=== PATIENT | male | born 1965 | race Caucasian/White ===

== ENCOUNTER 2018-02-03 18:12 | Inpatient (IN) | payer OTHER ==
[2018-02-03] MEDS ORDERED: NACL 0.9% 3 ML SYG IV (19:00)
[2018-02-03] MEDS ORDERED: HYDROCODONE/APAP (5/325) TAB PO (19:00)
[2018-02-03] MEDS ORDERED: MAGNESIUM HYDROXIDE 30ML CUP PO (19:00)
[2018-02-03] MEDS ORDERED: ACETAMINOPHEN 325 MG TAB PO (19:00)
[2018-02-03] MEDS ORDERED: METOCLOPRAMIDE 10 MG INJ IV (20:00)
[2018-02-03] MEDS ORDERED: LORAZEPAM 2 MG INJ IV (20:00)
[2018-02-03] MEDS ORDERED: PROMETHAZINE (1.25 MG/ML) 5 ML CUP PO (20:30)
[2018-02-03] MEDS ORDERED: PROMETHAZINE 25 MG TAB PO (20:30)
[2018-02-03] MEDS: morphine 2 MG INJ IV (20:59)
[2018-02-03] MEDS: CHLORDIAZEPOXIDE 25 MG CAP PO (21:00)
[2018-02-03] MEDS: DEXTROSE 5%-0.9% NACL 1,000 ML IV (21:00)
[2018-02-03] MEDS: LORAZEPAM 1 MG TAB PO (22:01)
[2018-02-03] MEDS: PANTOPRAZOLE 40 MG INJ IV (22:02)
[2018-02-04] MEDS: ONDANSETRON 4 MG INJ IV (03:11)
[2018-02-04] MEDS: morphine 2 MG INJ IV ×4 (03:19→18:43)
[2018-02-04 06:33] LABS: ADD MAN DIFF? NO
[2018-02-04 06:41] LABS: ABNORMAL IP MESSAGE 1; EOSINOPHILS # 0.1 10^3/ul (0.0-0.5); EOSINOPHILS % 1.6 % (0.0-7.0); HEMATOCRIT 23.8 % (42.0-52.0); HEMOGLOBIN 7.8 g/dl (14.0-18.0); LYMPHOCYTES # 1.1 10^3/ul (0.8-2.9); LYMPHOCYTES % 34.9 % (15.0-51.0); MEAN CORPUSCULAR HGB CONC 32.8 g/dl (32.0-37.0); MEAN CORPUSCULAR VOLUME 85.3 fl (82.0-101.0); MEAN PLATELET VOLUME 11.5 fl (7.4-10.4); MONOCYTE # 0.2 10^3/ul (0.3-0.9); MONOCYTES % 7.7 % (0.0-11.0); NEUTROPHIL # 1.7 10^3/ul (1.6-7.5); NEUTROPHILS % 53.8 % (39.0-77.0); PLATELET COUNT 76 10^3/UL (140-415); POSITIVE DIFF @See below; RED BLOOD COUNT 2.79 10^6/ul (4.70-6.10); RED CELL DISTRIBUTION WIDTH 15.9 % (11.5-14.5)
[2018-02-04 06:41] LABS: WHITE BLOOD COUNT 3.1 10^3/ul (4.8-10.8)
[2018-02-04 07:39] LABS: ANION GAP 12 (8-16)
[2018-02-04 07:41] LABS: ALANINE AMINOTRANSFERASE 35 IU/L (13-69); ALBUMIN 3.2 g/dl (3.3-4.9); ALBUMIN/GLOBULIN RATIO 1.23; ALKALINE PHOSPHATASE 60 IU/L (42-121); ASPARTATE AMINO TRANSFERASE 35 IU/L (15-46); BILIRUBIN,INDIRECT 0.4 mg/dl (0-1.1); BILIRUBIN,TOTAL 0.4 mg/dl (0.2-1.3); BLOOD UREA NITROGEN 5 mg/dl (7-20); CALCIUM 8.3 mg/dl (8.4-10.2); CARBON DIOXIDE 27 mmol/L (21-31); CHLORIDE 104 mmol/L (97-110); CREATININE 0.66 mg/dl (0.61-1.24); GLUCOSE 92 mg/dl (70-220); MAGNESIUM 1.4 mg/dl (1.7-2.5); PHOSPHORUS 4.5 mg/dl (2.5-4.9); POTASSIUM 3.4 mmol/L (3.5-5.1); SODIUM 140 mmol/L (135-144); TOTAL PROTEIN 5.8 g/dl (6.1-8.1)
[2018-02-04] MEDS: CHLORDIAZEPOXIDE 25 MG CAP PO ×2 (09:05→20:52)
[2018-02-04] MEDS: MULTIVITAMINS/MINERALS TAB PO (09:05)
[2018-02-04] MEDS: FOLIC ACID 1 MG TAB PO (09:05)
[2018-02-04] MEDS: PANTOPRAZOLE 40 MG INJ IV ×2 (09:05→20:52)
[2018-02-04] MEDS: THIAMINE 100 MG TAB PO (09:05)
[2018-02-04] MEDS: BUPROPION (XL) 150 MG TAB PO (09:06)
[2018-02-04] MEDS: LISINOPRIL 10 MG TAB PO (09:07)
[2018-02-04] MEDS: DEXTROSE 5%-0.9% NACL 1,000 ML IV (11:16)
[2018-02-04] MEDS: POTASSIUM CHLORIDE (SR) 20 MEQ TAB PO (16:38)
[2018-02-04] MEDS: MAGNESIUM SULFATE 1 GM/D5W 100 ML IVPB ×3 (17:37→20:52)
[2018-02-04] MEDS: morphine LIQ (10 MG/5 ML) CUP PO (23:29)
[2018-02-05] MEDS: DEXTROSE 5%-0.9% NACL 1,000 ML IV ×2 (00:36→04:47)
[2018-02-05] MEDS: morphine LIQ (10 MG/5 ML) CUP PO ×2 (04:46→11:43)
[2018-02-05 06:13] LABS: ADD MAN DIFF? NO
[2018-02-05 06:32] LABS: BASOPHILS % 0.5 % (0.0-2.0); EOSINOPHILS # 0.1 10^3/ul (0.0-0.5); EOSINOPHILS % 1.6 % (0.0-7.0); HEMATOCRIT 21.9 % (42.0-52.0); LYMPHOCYTES # 1.2 10^3/ul (0.8-2.9); LYMPHOCYTES % 31.7 % (15.0-51.0); MEAN CORPUSCULAR HEMOGLOBIN 27.6 pg (29.0-33.0); MEAN CORPUSCULAR VOLUME 86.2 fl (82.0-101.0); MONOCYTE # 0.4 10^3/ul (0.3-0.9); MONOCYTES % 10.7 % (0.0-11.0); NEUTROPHILS % 54.4 % (39.0-77.0); PLATELET COUNT 103 10^3/UL (140-415); RED BLOOD COUNT 2.54 10^6/ul (4.70-6.10); RED CELL DISTRIBUTION WIDTH 17.3 % (11.5-14.5)
[2018-02-05 06:32] LABS: WHITE BLOOD COUNT 3.7 10^3/ul (4.8-10.8)
[2018-02-05 06:43] LABS: ANION GAP 10 (8-16); BLOOD UREA NITROGEN 10 mg/dl (7-20); CALCIUM 7.8 mg/dl (8.4-10.2); CARBON DIOXIDE 28 mmol/L (21-31); CHLORIDE 104 mmol/L (97-110); CREATININE 0.72 mg/dl (0.61-1.24); GLUCOSE 108 mg/dl (70-220); POTASSIUM 4.2 mmol/L (3.5-5.1); SODIUM 138 mmol/L (135-144)
[2018-02-05] MEDS: MULTIVITAMINS/MINERALS TAB PO (08:50)
[2018-02-05] MEDS: PANTOPRAZOLE 40 MG INJ IV ×2 (08:50→21:38)
[2018-02-05] MEDS: CHLORDIAZEPOXIDE 25 MG CAP PO ×2 (08:50→21:38)
[2018-02-05] MEDS: LORAZEPAM 1 MG TAB PO (08:50)
[2018-02-05] MEDS: BUPROPION (XL) 150 MG TAB PO (08:51)
[2018-02-05] MEDS: LISINOPRIL 10 MG TAB PO (08:52)
[2018-02-05] MEDS: THIAMINE 100 MG TAB PO (08:56)
[2018-02-05] MEDS: FOLIC ACID 1 MG TAB PO (08:56)
[2018-02-05 13:10] LABS: IMMEDIATE SPIN CROSSMATCH 1 1
[2018-02-06 05:51] LABS: ADD MAN DIFF? NO
[2018-02-06 05:58] LABS: BASOPHILS % 0.4 % (0.0-2.0); EOSINOPHILS # 0.1 10^3/ul (0.0-0.5); EOSINOPHILS % 1.8 % (0.0-7.0); HEMATOCRIT 26.4 % (42.0-52.0); HEMOGLOBIN 8.5 g/dl (14.0-18.0); LYMPHOCYTES # 1.2 10^3/ul (0.8-2.9); LYMPHOCYTES % 27.3 % (15.0-51.0); MEAN CORPUSCULAR HEMOGLOBIN 28.1 pg (29.0-33.0); MEAN CORPUSCULAR HGB CONC 32.2 g/dl (32.0-37.0); MEAN CORPUSCULAR VOLUME 87.1 fl (82.0-101.0); MEAN PLATELET VOLUME 10.7 fl (7.4-10.4); MONOCYTE # 0.7 10^3/ul (0.3-0.9); MONOCYTES % 15.1 % (0.0-11.0); NEUTROPHIL # 2.4 10^3/ul (1.6-7.5); NEUTROPHILS % 54.1 % (39.0-77.0); PLATELET COUNT 116 10^3/UL (140-415); RED BLOOD COUNT 3.03 10^6/ul (4.70-6.10); RED CELL DISTRIBUTION WIDTH 17.1 % (11.5-14.5)
[2018-02-06 05:58] LABS: WHITE BLOOD COUNT 4.5 10^3/ul (4.8-10.8)
[2018-02-06 06:33] LABS: PHOSPHORUS 3.5 mg/dl (2.5-4.9)
[2018-02-06 06:36] LABS: ANION GAP 13 (8-16); BLOOD UREA NITROGEN 10 mg/dl (7-20); CALCIUM 8.5 mg/dl (8.4-10.2); CARBON DIOXIDE 28 mmol/L (21-31); CHLORIDE 106 mmol/L (97-110); CREATININE 0.76 mg/dl (0.61-1.24); GLUCOSE 95 mg/dl (70-220); POTASSIUM 4.8 mmol/L (3.5-5.1); SODIUM 142 mmol/L (135-144)
[2018-02-06] MEDS: LISINOPRIL 10 MG TAB PO (08:12)
[2018-02-06] MEDS: FOLIC ACID 1 MG TAB PO (08:12)
[2018-02-06] MEDS: CHLORDIAZEPOXIDE 25 MG CAP PO (08:12)
[2018-02-06] MEDS: MULTIVITAMINS/MINERALS TAB PO (08:12)
[2018-02-06] MEDS: THIAMINE 100 MG TAB PO (08:12)
[2018-02-06] MEDS: BUPROPION (XL) 150 MG TAB PO (08:12)
[2018-02-06] MEDS: PANTOPRAZOLE 40 MG INJ IV (08:12)
== END 2018-02-06 12:50 | disposition home or self-care (01) | DRG 896 ==
LOC: PP2 18:12
DX: F10.239 Alcohol dependence with withdrawal, unspecified (principal); K22.11 Ulcer of esophagus with bleeding; K29.71 Gastritis, unspecified, with bleeding; K92.0 Hematemesis; D61.818 Other pancytopenia; I10 Essential (primary) hypertension; E78.5 Hyperlipidemia, unspecified; F32.9 Major depressive disorder, single episode, unspecified; E87.6 Hypokalemia; E83.42 Hypomagnesemia; Z85.828 Personal history of other malignant neoplasm of skin; F17.210 Nicotine dependence, cigarettes, uncomplicated
CPT/HCPCS: 36430; 80048; 80053; 83735; 84100; 85025; 86850; 86900; 86901; 86920; 87081

== ENCOUNTER 2018-09-16 01:21 | Inpatient (IN) | payer OTHER ==
[2018-09-16] MEDS: LORAZEPAM 2 MG INJ IV ×3 (04:56→17:57)
[2018-09-16] MEDS: PANTOPRAZOLE (EC) 40 MG TAB PO (05:38)
[2018-09-16 06:30] LABS: ADD MAN DIFF? NO
[2018-09-16 06:34] LABS: WHITE BLOOD COUNT 5.9 10^3/ul (4.8-10.8)
[2018-09-16 06:34] LABS: ABNORMAL IP MESSAGE 1; BASOPHILS % 0.5 % (0.0-2.0); EOSINOPHILS # 0.1 10^3/ul (0.0-0.5); EOSINOPHILS % 1.7 % (0.0-7.0); HEMATOCRIT 26.1 % (42.0-52.0); HEMOGLOBIN 8.9 g/dl (14.0-18.0); LYMPHOCYTES # 1.7 10^3/ul (0.8-2.9); LYMPHOCYTES % 28.6 % (15.0-51.0); MEAN CORPUSCULAR HEMOGLOBIN 29.6 pg (29.0-33.0); MEAN CORPUSCULAR HGB CONC 34.1 g/dl (32.0-37.0); MEAN CORPUSCULAR VOLUME 86.7 fl (82.0-101.0); MEAN PLATELET VOLUME 12.1 fl (7.4-10.4); MONOCYTE # 0.4 10^3/ul (0.3-0.9); MONOCYTES % 6.1 % (0.0-11.0); NEUTROPHIL # 3.7 10^3/ul (1.6-7.5); NEUTROPHILS % 62.6 % (39.0-77.0); PLATELET COUNT 68 10^3/UL (140-415); POSITIVE DIFF @See below; RED BLOOD COUNT 3.01 10^6/ul (4.70-6.10); RED CELL DISTRIBUTION WIDTH 12.2 % (11.5-14.5)
[2018-09-16 07:18] LABS: ANION GAP 6 (5-13); BLOOD UREA NITROGEN 8 mg/dl (7-20); CALCIUM 8.6 mg/dl (8.4-10.2); CARBON DIOXIDE 31 mmol/L (21-31); CHLORIDE 98 mmol/L (97-110); CREATININE 0.63 mg/dl (0.61-1.24); Estimated GFR > 60 mL/min (>60); GLUCOSE 113 mg/dl (70-220); MAGNESIUM 1.8 mg/dl (1.7-2.5); POTASSIUM 3.5 mmol/L (3.5-5.1); SODIUM 135 mmol/L (135-144)
[2018-09-16] MEDS: morphine SULFATE/PF (2 MG/2 ML) SYG IV ×2 (07:39→15:43)
[2018-09-16] MEDS: FOLIC ACID 1 MG TAB PO (09:10)
[2018-09-16] MEDS: THIAMINE 100 MG TAB PO (09:10)
[2018-09-16] MEDS: BUPROPION (XL) 150 MG TAB PO (09:10)
[2018-09-16] MEDS: LISINOPRIL 10 MG TAB PO (09:11)
[2018-09-16] MEDS: LORAZEPAM 1 MG TAB PO (09:11)
[2018-09-16] MEDS: MULTIVITAMINS/MINERALS TAB PO (09:11)
[2018-09-16] MEDS: AMLODIPINE 10 MG TAB PO (09:11)
[2018-09-16] MEDS: CHLORDIAZEPOXIDE 25 MG CAP PO ×2 (13:26→20:19)
[2018-09-16] MEDS: morphine LIQ (10 MG/5 ML) CUP PO (21:34)
[2018-09-16] MEDS: ONDANSETRON 4 MG INJ IV (21:35)
[2018-09-17] MEDS: morphine LIQ (10 MG/5 ML) CUP PO (02:14)
[2018-09-17] MEDS: PANTOPRAZOLE (EC) 40 MG TAB PO (05:31)
[2018-09-17] MEDS: LISINOPRIL 10 MG TAB PO (08:56)
[2018-09-17] MEDS: FOLIC ACID 1 MG TAB PO (08:56)
[2018-09-17] MEDS: AMLODIPINE 10 MG TAB PO (08:56)
[2018-09-17] MEDS: THIAMINE 100 MG TAB PO (08:56)
[2018-09-17] MEDS: CHLORDIAZEPOXIDE 25 MG CAP PO ×3 (08:56→20:20)
[2018-09-17] MEDS: BUPROPION (XL) 150 MG TAB PO (10:09)
[2018-09-17] MEDS: MULTIVITAMINS/MINERALS TAB PO (10:09)
[2018-09-17] MEDS ORDERED: ACETAMINOPHEN 325 MG TAB (10:46)
[2018-09-17] MEDS: ACETAMINOPHEN 325 MG TAB PO (10:51)
[2018-09-17] MEDS: PNEUMOCOCCAL VACCINE 0.5 ML INJ (DISPENSING) IM* (13:24)
[2018-09-17] MEDS: LORAZEPAM 2 MG INJ IV ×2 (13:49→22:07)
[2018-09-17] MEDS: ONDANSETRON 4 MG INJ IV (17:55)
[2018-09-18] MEDS: morphine LIQ (10 MG/5 ML) CUP PO (01:42)
[2018-09-18] MEDS: ONDANSETRON 4 MG INJ IV (04:49)
[2018-09-18] MEDS: LORAZEPAM 2 MG INJ IV ×3 (04:59→20:16)
[2018-09-18] MEDS: PANTOPRAZOLE (EC) 40 MG TAB PO (05:00)
[2018-09-18] MEDS: AMLODIPINE 10 MG TAB PO (08:38)
[2018-09-18] MEDS: FOLIC ACID 1 MG TAB PO (08:38)
[2018-09-18] MEDS: MULTIVITAMINS/MINERALS TAB PO (08:38)
[2018-09-18] MEDS: BUPROPION (XL) 150 MG TAB PO (08:38)
[2018-09-18] MEDS: CHLORDIAZEPOXIDE 25 MG CAP PO ×3 (08:38→20:16)
[2018-09-18] MEDS: LISINOPRIL 10 MG TAB PO (08:38)
[2018-09-18] MEDS: THIAMINE 100 MG TAB PO (08:38)
[2018-09-18] MEDS: DOCUSATE SODIUM 100 MG CAP PO (12:00)
[2018-09-18] MEDS: SOD FERRIC GLUC COMPLX 125 MG in SOD CHLORIDE 0.9% 100 ML IVPB (13:02)
[2018-09-18] MEDS: HYDROCODONE/APAP (5/325) TAB PO ×2 (13:06→22:58)
[2018-09-18 19:09] LABS: INR 0.96; PROTIME 12.9 Sec (11.9-14.9)
[2018-09-19] MEDS: DEXTROSE 5%-0.45% NACL 1,000 ML IV ×2 (00:10→14:30)
[2018-09-19] MEDS: LORAZEPAM 2 MG INJ IV ×2 (02:34→23:51)
[2018-09-19] MEDS: PANTOPRAZOLE (EC) 40 MG TAB PO (06:00)
[2018-09-19 08:38] LABS: ADD MAN DIFF? NO
[2018-09-19 08:39] LABS: WHITE BLOOD COUNT 5.3 10^3/ul (4.8-10.8)
[2018-09-19 08:39] LABS: BASOPHILS % 0.4 % (0.0-2.0); EOSINOPHILS # 0.1 10^3/ul (0.0-0.5); EOSINOPHILS % 1.7 % (0.0-7.0); HEMATOCRIT 26.3 % (42.0-52.0); HEMOGLOBIN 8.5 g/dl (14.0-18.0); LYMPHOCYTES # 1.4 10^3/ul (0.8-2.9); LYMPHOCYTES % 26.4 % (15.0-51.0); MEAN CORPUSCULAR HEMOGLOBIN 29.6 pg (29.0-33.0); MEAN CORPUSCULAR HGB CONC 32.3 g/dl (32.0-37.0); MEAN CORPUSCULAR VOLUME 91.6 fl (82.0-101.0); MEAN PLATELET VOLUME 10.6 fl (7.4-10.4); MONOCYTE # 0.8 10^3/ul (0.3-0.9); MONOCYTES % 14.3 % (0.0-11.0); NEUTROPHIL # 2.9 10^3/ul (1.6-7.5); NEUTROPHILS % 55.5 % (39.0-77.0); PLATELET COUNT 137 10^3/UL (140-415); RED BLOOD COUNT 2.87 10^6/ul (4.70-6.10); RED CELL DISTRIBUTION WIDTH 13.5 % (11.5-14.5)
[2018-09-19 08:55] LABS: ANION GAP 5 (5-13); BLOOD UREA NITROGEN 8 mg/dl (7-20); CALCIUM 8.7 mg/dl (8.4-10.2); CARBON DIOXIDE 29 mmol/L (21-31); CHLORIDE 103 mmol/L (97-110); CREATININE 0.74 mg/dl (0.61-1.24); Estimated GFR > 60 mL/min (>60); GLUCOSE 116 mg/dl (70-220); SODIUM 137 mmol/L (135-144)
[2018-09-19 09:00] LABS: INR 0.91; PROTIME 12.4 Sec (11.9-14.9)
[2018-09-19] MEDS: BUPROPION (XL) 150 MG TAB PO (09:00)
[2018-09-19] MEDS: MULTIVITAMINS/MINERALS TAB PO (09:00)
[2018-09-19] MEDS: AMLODIPINE 10 MG TAB PO (09:00)
[2018-09-19] MEDS: FOLIC ACID 1 MG TAB PO (09:00)
[2018-09-19] MEDS: THIAMINE 100 MG TAB PO (09:00)
[2018-09-19] MEDS: CHLORDIAZEPOXIDE 25 MG CAP PO ×3 (09:00→20:07)
[2018-09-19] MEDS: LISINOPRIL 10 MG TAB PO (09:00)
[2018-09-19] MEDS: DOCUSATE SODIUM 100 MG CAP PO (09:00)
[2018-09-19 09:01] LABS: PARTIAL THROMBOPLASTIN TIME 29.6 Sec (23.0-35.0)
[2018-09-19] MEDS ORDERED: ETOMIDATE 20 MG INJ (11:54)
[2018-09-19] MEDS ORDERED: PROPOFOL 20 ML (11:54)
[2018-09-19] MEDS ORDERED: LIDOCAINE 2% (SDV) 5 ML INJ (11:54)
[2018-09-19] MEDS ORDERED: NACL 0.9% 3 ML SYG IV (12:30)
[2018-09-19] MEDS ORDERED: KETOROLAC 30 MG INJ (12:34)
[2018-09-19] MEDS ORDERED: HYDROmorphONE 1 MG/5 ML IV SYRINGE IV (13:00)
[2018-09-19] MEDS: HYDROmorphONE 1 MG/5 ML IV SYRINGE IV (13:27)
[2018-09-19] MEDS: ONDANSETRON 4 MG INJ IV (13:27)
[2018-09-19] MEDS ORDERED: morphine (1 MG/ML) 10ML SYRINGE IV (14:00)
[2018-09-19] MEDS: HYDROCODONE/APAP (5/325) TAB PO ×2 (15:17→22:31)
[2018-09-19] MEDS: SOD FERRIC GLUC COMPLX 125 MG in SOD CHLORIDE 0.9% 100 ML IVPB (15:50)
[2018-09-20] MEDS: morphine 2 MG INJ IV ×3 (02:57→15:39)
[2018-09-20] MEDS: PANTOPRAZOLE (EC) 40 MG TAB PO (05:25)
[2018-09-20 07:54] LABS: ADD MAN DIFF? NO
[2018-09-20 07:58] LABS: BASOPHILS % 0.4 % (0.0-2.0); EOSINOPHILS # 0.1 10^3/ul (0.0-0.5); EOSINOPHILS % 1.6 % (0.0-7.0); HEMATOCRIT 23.6 % (42.0-52.0); HEMOGLOBIN 7.6 g/dl (14.0-18.0); LYMPHOCYTES # 1.3 10^3/ul (0.8-2.9); LYMPHOCYTES % 25.7 % (15.0-51.0); MEAN CORPUSCULAR HEMOGLOBIN 29.2 pg (29.0-33.0); MEAN CORPUSCULAR HGB CONC 32.2 g/dl (32.0-37.0); MEAN CORPUSCULAR VOLUME 90.8 fl (82.0-101.0); MEAN PLATELET VOLUME 10.6 fl (7.4-10.4); MONOCYTE # 0.8 10^3/ul (0.3-0.9); MONOCYTES % 15.2 % (0.0-11.0); NEUTROPHIL # 2.6 10^3/ul (1.6-7.5); NEUTROPHILS % 52.9 % (39.0-77.0); PLATELET COUNT 143 10^3/UL (140-415); RED CELL DISTRIBUTION WIDTH 13.6 % (11.5-14.5)
[2018-09-20 08:12] LABS: ANION GAP 2 (5-13); BLOOD UREA NITROGEN 10 mg/dl (7-20); CALCIUM 8.2 mg/dl (8.4-10.2); CARBON DIOXIDE 28 mmol/L (21-31); CHLORIDE 107 mmol/L (97-110); Estimated GFR > 60 mL/min (>60); GLUCOSE 103 mg/dl (70-220); POTASSIUM 4.1 mmol/L (3.5-5.1); SODIUM 137 mmol/L (135-144)
[2018-09-20] MEDS: BUPROPION (XL) 150 MG TAB PO (08:12)
[2018-09-20] MEDS: DOCUSATE SODIUM 100 MG CAP PO (08:13)
[2018-09-20] MEDS: THIAMINE 100 MG TAB PO (08:14)
[2018-09-20] MEDS: FOLIC ACID 1 MG TAB PO (08:14)
[2018-09-20] MEDS: MULTIVITAMINS/MINERALS TAB PO (08:14)
[2018-09-20] MEDS: CHLORDIAZEPOXIDE 25 MG CAP PO ×2 (08:14→12:57)
[2018-09-20] MEDS: AMLODIPINE 10 MG TAB PO (08:15)
[2018-09-20] MEDS: LISINOPRIL 10 MG TAB PO (08:15)
[2018-09-20] MEDS: LORAZEPAM 2 MG INJ IV (10:20)
[2018-09-20 10:59] LABS: HEMATOCRIT 24.2 % (42.0-52.0); HEMOGLOBIN 7.9 g/dl (14.0-18.0)
[2018-09-20] MEDS: HYDROCODONE/APAP (5/325) TAB PO (11:57)
[2018-09-20] MEDS: SOD FERRIC GLUC COMPLX 125 MG in SOD CHLORIDE 0.9% 100 ML IVPB (12:57)
== END 2018-09-20 16:40 | disposition home or self-care (01) | DRG 563 ==
LOC: TEL 01:21 → 5EC 22:40
PROC: 0PSHXZZ Reposition Right Radius, External Approach (ICD-10-PCS; principal; 2018-09-19 11:00)
DX: S52.531A Colles' fracture of right radius, initial encounter for closed fracture (principal); F10.239 Alcohol dependence with withdrawal, unspecified; D61.818 Other pancytopenia; F33.2 Major depressive disorder, recurrent severe without psychotic features; E78.5 Hyperlipidemia, unspecified; I10 Essential (primary) hypertension; E87.6 Hypokalemia; R29.6 Repeated falls; R26.9 Unspecified abnormalities of gait and mobility; Z85.828 Personal history of other malignant neoplasm of skin; W19.XXXA Unspecified fall, initial encounter
CPT/HCPCS: 71045; 73100; 73110-RT; 80048; 83735; 85014; 85018; 85025; 85610; 85730; 87081; 90732; 93005; 97161

== ENCOUNTER 2018-10-22 14:42 | Inpatient (IN) | payer OTHER ==
[2018-10-22] MEDS ORDERED: ACETAMINOPHEN 325 MG TAB PO (16:30)
[2018-10-22] MEDS ORDERED: METOCLOPRAMIDE 10 MG INJ IV (16:30)
[2018-10-22] MEDS ORDERED: ONDANSETRON 4 MG INJ IV (16:30)
[2018-10-22] MEDS ORDERED: NACL 0.9% 3 ML SYG IV (16:30)
[2018-10-22 16:59] LABS: POTASSIUM 3.6 mmol/L (3.5-5.1)
[2018-10-22 16:59] LABS: MAGNESIUM 1.4 mg/dl (1.7-2.5)
[2018-10-22] MEDS: SOD CHLORIDE 0.9% 1,000 ML IV (18:00)
[2018-10-22] MEDS: LORAZEPAM 2 MG INJ IV ×2 (18:40→22:29)
[2018-10-22] MEDS: MAGNESIUM SULFATE 2 GM/50 ML 50 ML IVPB (21:01)
[2018-10-22] MEDS: CHLORDIAZEPOXIDE 25 MG CAP PO (21:01)
[2018-10-22] MEDS: PANTOPRAZOLE 40 MG INJ IV (21:58)
[2018-10-23] MEDS: LORAZEPAM 2 MG INJ IV ×5 (03:02→20:28)
[2018-10-23] MEDS: morphine 2 MG INJ IV ×5 (03:52→20:26)
[2018-10-23] MEDS ORDERED: PANTOPRAZOLE 40 MG INJ IV (06:00)
[2018-10-23 06:03] LABS: ADD MAN DIFF? NO; BASOPHILS % 0.8 % (0.0-2.0); EOSINOPHILS # 0.1 10^3/ul (0.0-0.5); EOSINOPHILS % 1.3 % (0.0-7.0); HEMATOCRIT 30.3 % (42.0-52.0); HEMOGLOBIN 9.7 g/dl (14.0-18.0); LYMPHOCYTES # 1.2 10^3/ul (0.8-2.9); LYMPHOCYTES % 29.7 % (15.0-51.0); MEAN CORPUSCULAR HEMOGLOBIN 28.2 pg (29.0-33.0); MEAN CORPUSCULAR VOLUME 88.1 fl (82.0-101.0); MONOCYTE # 0.3 10^3/ul (0.3-0.9); MONOCYTES % 6.4 % (0.0-11.0); NEUTROPHIL # 2.4 10^3/ul (1.6-7.5); NEUTROPHILS % 61.5 % (39.0-77.0); PLATELET COUNT 113 10^3/UL (140-415); RED BLOOD COUNT 3.44 10^6/ul (4.70-6.10); RED CELL DISTRIBUTION WIDTH 14.6 % (11.5-14.5)
[2018-10-23 06:03] LABS: WHITE BLOOD COUNT 3.9 10^3/ul (4.8-10.8)
[2018-10-23 06:26] LABS: ALANINE AMINOTRANSFERASE 43 IU/L (13-69); ALBUMIN 3.5 g/dl (3.3-4.9); ALBUMIN/GLOBULIN RATIO 1.34; ALKALINE PHOSPHATASE 68 IU/L (42-121); ANION GAP 9 (5-13); ASPARTATE AMINO TRANSFERASE 33 IU/L (15-46); BILIRUBIN,INDIRECT 0.7 mg/dl (0-1.1); BILIRUBIN,TOTAL 0.7 mg/dl (0.2-1.3); BLOOD UREA NITROGEN 4 mg/dl (7-20); CALCIUM 8.5 mg/dl (8.4-10.2); CARBON DIOXIDE 23 mmol/L (21-31); CHLORIDE 106 mmol/L (97-110); CREATININE 0.58 mg/dl (0.61-1.24); Estimated GFR > 60 mL/min (>60); GLUCOSE 92 mg/dl (70-220); POTASSIUM 3.2 mmol/L (3.5-5.1); SODIUM 138 mmol/L (135-144); TOTAL PROTEIN 6.1 g/dl (6.1-8.1)
[2018-10-23] MEDS: MULTIVITAMINS 10 ML, THIAMINE 100 MG, FOLIC ACID 1 MG in SOD CHLORIDE 0.9% 1,000 ML IVPB (07:57)
[2018-10-23] MEDS: SOD CHLORIDE 0.9% 1,000 ML IV ×2 (07:57→17:09)
[2018-10-23] MEDS: CHLORDIAZEPOXIDE 25 MG CAP PO ×4 (07:58→23:11)
[2018-10-23] MEDS: PANTOPRAZOLE 40 MG INJ IV ×2 (07:58→20:26)
[2018-10-23] MEDS ORDERED: MULTIVITAMINS 10 ML, THIAMINE 100 MG, FOLIC ACID 1 MG in SOD CHLORIDE 0.9% 1,000 ML IVPB (09:00)
[2018-10-23] MEDS: POTASSIUM CHLORIDE (SR) 20 MEQ TAB PO (10:03)
[2018-10-23 10:04] LABS: LIPASE 169 U/L (23-300)
[2018-10-23] MEDS: AMLODIPINE 10 MG TAB PO (16:07)
[2018-10-23] MEDS: BUPROPION (XL) 150 MG TAB PO (17:09)
[2018-10-23] MEDS: FERROUS SULFATE (EC) 325 MG TAB PO (20:29)
[2018-10-23] MEDS: FAMOTIDINE 20 MG TAB PO (20:33)
[2018-10-24] MEDS: LORAZEPAM 2 MG INJ IV ×6 (01:43→23:59)
[2018-10-24] MEDS: morphine 2 MG INJ IV ×5 (01:44→22:11)
[2018-10-24 05:14] LABS: ADD MAN DIFF? NO
[2018-10-24 05:21] LABS: ABNORMAL IP MESSAGE 1; BASOPHILS % 0.7 % (0.0-2.0); EOSINOPHILS # 0.1 10^3/ul (0.0-0.5); HEMATOCRIT 30.8 % (42.0-52.0); HEMOGLOBIN 9.7 g/dl (14.0-18.0); LYMPHOCYTES # 1.5 10^3/ul (0.8-2.9); MEAN CORPUSCULAR HEMOGLOBIN 28.3 pg (29.0-33.0); MEAN CORPUSCULAR HGB CONC 31.5 g/dl (32.0-37.0); MEAN CORPUSCULAR VOLUME 89.8 fl (82.0-101.0); MEAN PLATELET VOLUME 10.8 fl (7.4-10.4); MONOCYTE # 0.3 10^3/ul (0.3-0.9); NEUTROPHIL # 2.6 10^3/ul (1.6-7.5); NEUTROPHILS % 56.9 % (39.0-77.0); PLATELET COUNT 99 10^3/UL (140-415); POSITIVE DIFF @See below; RED BLOOD COUNT 3.43 10^6/ul (4.70-6.10); RED CELL DISTRIBUTION WIDTH 14.5 % (11.5-14.5)
[2018-10-24 05:21] LABS: WHITE BLOOD COUNT 4.6 10^3/ul (4.8-10.8)
[2018-10-24 05:53] LABS: ANION GAP 6 (5-13); BLOOD UREA NITROGEN 4 mg/dl (7-20); CALCIUM 8.6 mg/dl (8.4-10.2); CARBON DIOXIDE 25 mmol/L (21-31); CHLORIDE 108 mmol/L (97-110); CREATININE 0.62 mg/dl (0.61-1.24); Estimated GFR > 60 mL/min (>60); GLUCOSE 86 mg/dl (70-220); POTASSIUM 3.9 mmol/L (3.5-5.1); SODIUM 139 mmol/L (135-144)
[2018-10-24] MEDS: DOCUSATE SODIUM 100 MG CAP PO (09:00)
[2018-10-24] MEDS: FAMOTIDINE 20 MG TAB PO ×2 (09:14→20:21)
[2018-10-24] MEDS: CHLORDIAZEPOXIDE 25 MG CAP PO ×3 (09:14→20:21)
[2018-10-24] MEDS: THIAMINE 100 MG TAB PO (09:14)
[2018-10-24] MEDS: AMLODIPINE 10 MG TAB PO (09:14)
[2018-10-24] MEDS: PANTOPRAZOLE 40 MG INJ IV ×2 (09:14→20:21)
[2018-10-24] MEDS: FERROUS SULFATE (EC) 325 MG TAB PO ×2 (09:14→20:21)
[2018-10-24] MEDS: FOLIC ACID 1 MG TAB PO (09:14)
[2018-10-24] MEDS: BUPROPION (XL) 150 MG TAB PO (09:15)
[2018-10-24] MEDS: MULTIVITAMINS 10 ML, THIAMINE 100 MG, FOLIC ACID 1 MG in SOD CHLORIDE 0.9% 1,000 ML IVPB (09:25)
[2018-10-24] MEDS ORDERED: IOHEXOL 14.3 MG(I)/ML (ADULT) BTL PO (10:30)
[2018-10-24] MEDS: IOHEXOL 300MG/ML 150 ML BTL (12:46)
[2018-10-24] MEDS: SOD CHLORIDE 0.9% 100 ML (12:46)
[2018-10-24] MEDS: SOD CHLORIDE 0.9% 1,000 ML IV (19:55)
[2018-10-25] MEDS: morphine 2 MG INJ IV ×5 (02:23→21:52)
[2018-10-25] MEDS: LORAZEPAM 2 MG INJ IV ×5 (03:49→20:34)
[2018-10-25 05:22] LABS: ADD MAN DIFF? NO
[2018-10-25 05:34] LABS: BASOPHILS % 0.7 % (0.0-2.0); EOSINOPHILS # 0.1 10^3/ul (0.0-0.5); EOSINOPHILS % 2.1 % (0.0-7.0); HEMATOCRIT 32.4 % (42.0-52.0); HEMOGLOBIN 9.8 g/dl (14.0-18.0); LYMPHOCYTES # 1.6 10^3/ul (0.8-2.9); LYMPHOCYTES % 38.1 % (15.0-51.0); MEAN CORPUSCULAR HEMOGLOBIN 27.5 pg (29.0-33.0); MEAN CORPUSCULAR HGB CONC 30.2 g/dl (32.0-37.0); MONOCYTE # 0.4 10^3/ul (0.3-0.9); MONOCYTES % 9.1 % (0.0-11.0); NEUTROPHIL # 2.1 10^3/ul (1.6-7.5); NEUTROPHILS % 49.5 % (39.0-77.0); PLATELET COUNT 106 10^3/UL (140-415); RED BLOOD COUNT 3.56 10^6/ul (4.70-6.10); RED CELL DISTRIBUTION WIDTH 14.9 % (11.5-14.5)
[2018-10-25 05:34] LABS: WHITE BLOOD COUNT 4.3 10^3/ul (4.8-10.8)
[2018-10-25 06:39] LABS: ANION GAP 7 (5-13); BLOOD UREA NITROGEN 8 mg/dl (7-20); CALCIUM 8.6 mg/dl (8.4-10.2); CARBON DIOXIDE 27 mmol/L (21-31); CHLORIDE 108 mmol/L (97-110); CREATININE 0.77 mg/dl (0.61-1.24); Estimated GFR > 60 mL/min (>60); GLUCOSE 65 mg/dl (70-220); POTASSIUM 4.1 mmol/L (3.5-5.1); SODIUM 142 mmol/L (135-144)
[2018-10-25] MEDS: BUPROPION (XL) 150 MG TAB PO (08:59)
[2018-10-25] MEDS: DOCUSATE SODIUM 100 MG CAP PO (09:00)
[2018-10-25] MEDS: FOLIC ACID 1 MG TAB PO (09:00)
[2018-10-25] MEDS: CHLORDIAZEPOXIDE 25 MG CAP PO ×3 (09:00→20:34)
[2018-10-25] MEDS: FERROUS SULFATE (EC) 325 MG TAB PO ×2 (09:00→20:34)
[2018-10-25] MEDS: FAMOTIDINE 20 MG TAB PO ×2 (09:00→20:34)
[2018-10-25] MEDS: AMLODIPINE 10 MG TAB PO (09:00)
[2018-10-25] MEDS: MULTIVITAMINS 10 ML, FOLIC ACID 1 MG in SOD CHLORIDE 0.9% 1,000 ML IVPB (09:01)
[2018-10-25] MEDS: PANTOPRAZOLE 40 MG INJ IV ×2 (09:01→20:33)
[2018-10-25] MEDS: SOD CHLORIDE 0.9% 1,000 ML IV (10:43)
[2018-10-25] MEDS: THIAMINE 100 MG TAB PO (15:26)
[2018-10-26] MEDS: SOD CHLORIDE 0.9% 1,000 ML IV (00:10)
[2018-10-26] MEDS: LORAZEPAM 2 MG INJ IV ×5 (00:10→16:25)
[2018-10-26] MEDS: morphine 2 MG INJ IV ×5 (02:14→18:56)
[2018-10-26] MEDS: PANTOPRAZOLE 40 MG INJ IV (08:07)
[2018-10-26] MEDS: FERROUS SULFATE (EC) 325 MG TAB PO (08:07)
[2018-10-26] MEDS: AMLODIPINE 10 MG TAB PO (08:07)
[2018-10-26] MEDS: FOLIC ACID 1 MG TAB PO (08:07)
[2018-10-26] MEDS: CHLORDIAZEPOXIDE 25 MG CAP PO ×2 (08:07→12:49)
[2018-10-26] MEDS: BUPROPION (XL) 150 MG TAB PO (08:07)
[2018-10-26] MEDS: THIAMINE 100 MG TAB PO (08:07)
[2018-10-26] MEDS: FAMOTIDINE 20 MG TAB PO (08:07)
[2018-10-26] MEDS: DOCUSATE SODIUM 100 MG CAP PO (08:08)
[2018-10-26] MEDS: MULTIVITAMINS 10 ML, FOLIC ACID 1 MG in SOD CHLORIDE 0.9% 1,000 ML IVPB (08:29)
[2018-10-26] MEDS: PANTOPRAZOLE (EC) 40 MG TAB PO (18:00)
== END 2018-10-26 19:10 | disposition home or self-care (01) | DRG 897 ==
LOC: PP2 10-23 17:58 → 6WM 14:42
PROVIDERS: Internal Medicine Nephrology
DX: F10.239 Alcohol dependence with withdrawal, unspecified (principal); N13.30 Unspecified hydronephrosis; I10 Essential (primary) hypertension; E87.6 Hypokalemia; F32.9 Major depressive disorder, single episode, unspecified; E78.5 Hyperlipidemia, unspecified; D69.6 Thrombocytopenia, unspecified; D70.9 Neutropenia, unspecified; D64.9 Anemia, unspecified; R00.1 Bradycardia, unspecified; Z85.828 Personal history of other malignant neoplasm of skin
CPT/HCPCS: 74178; 76700; 80048; 80053; 83690; 83735; 84132; 85025